=== PATIENT | female | born 1940 | race Native Hawaiian/Other Pacific Islander ===

== ENCOUNTER 2016-12-12 13:27 | Outpatient (CLI) | payer OTHER ==
[~2016-12-12 13:27] MED LIST: APRODINE1 TAB PO; CENTRUM SILVER PO; CRESTOR20 MG PO; DULO30CA PO; GABA100C2 PO; GLIM4TAB PO; HYDR25TA60 PO; HYZAAR1 TA1 PO; MAGNESIUM200 MG PO; MECLIZINE12.5 MG PO; METF500T PO; OMEPRAZOLE40 MG PO; ZANTAC300 MG PO
[2016-12-12 14:30] LABS: PLATELET COUNT 353 K/uL (152-353)
== END 2016-12-12 19:35 | disposition home or self-care (01) ==
LOC: LABW 13:27
PROVIDERS: Physician Assistant Surgical
DX: T81.31XA Disruption of external operation (surgical) wound, not elsewhere classified, initial encounter (principal)
CPT/HCPCS: 36415; 85027; 85651; 86140

== ENCOUNTER 2017-01-07 18:29 | Outpatient (CLI) | payer OTHER | END 2017-01-07 19:32 | disposition home or self-care (01) | LOC: LAB 18:29 | DX: A07.2 Cryptosporidiosis (principal) | CPT/HCPCS: 87015; 87045; 87205; 87328; 87329; 87899 ==

== ENCOUNTER 2017-01-14 10:27 | Outpatient (CLI) | payer OTHER | END 2017-01-14 13:00 | disposition home or self-care (01) | LOC: INF 10:27 | DX: E86.0 Dehydration (principal) | CPT/HCPCS: 96360; 96361 ==

== ENCOUNTER 2017-12-16 14:51 | Outpatient (CLI) | payer OTHER ==
[~2017-12-16 14:51] MED LIST changes: +BAYER ASPIRIN E81 MG OR; +SIMV20TA2 PO
== END 2017-12-16 19:53 | disposition home or self-care (01) ==
LOC: RAD 14:51
DX: Z17.0 Estrogen receptor positive status [ER+] (principal); R42 Dizziness and giddiness; Z78.0 Asymptomatic menopausal state

== ENCOUNTER 2018-07-29 14:42 | Outpatient (CLI) | payer OTHER | END 2018-07-29 19:22 | disposition home or self-care (01) | LOC: RAD 14:42 | DX: J18.0 Bronchopneumonia, unspecified organism (principal) ==

== ENCOUNTER 2018-12-24 15:39 | Emergency (ER) | payer OTHER ==
[~2018-12-24] VITALS: Ht 165.1 cm; Wt 68.9 kg
[2018-12-24 15:55] VITALS: TEMP 98.2
[2018-12-24 17:17] VITALS: BP 148/74
== END 2018-12-24 17:14 | disposition home or self-care (01) ==
LOC: ED 15:39
DX: S63.682A Other sprain of left thumb, initial encounter (principal); V47.3XXA Unspecified car occupant injured in collision with fixed or stationary object in nontraffic accident, initial encounter; Y92.89 Other specified places as the place of occurrence of the external cause
CPT/HCPCS: 90471; 90715; 99283

== ENCOUNTER 2020-01-13 11:58 | Outpatient (CLI) | payer OTHER | END 2020-01-13 19:51 | disposition home or self-care (01) | LOC: RAD 11:58 | DX: R13.10 Dysphagia, unspecified (principal) ==

== ENCOUNTER 2021-02-06 09:31 | Outpatient (CLI) | payer OTHER | END 2021-02-06 21:45 | disposition home or self-care (01) | LOC: CT 09:31 | PROVIDERS: ATTEND Nurse Practitioner Family | DX: J32.9 Chronic sinusitis, unspecified (principal) ==

== ENCOUNTER 2021-03-07 12:43 | Outpatient (CLI) | payer OTHER ==
[2021-03-07 13:13] LABS: POTASSIUM 4.4 mmol/L (3.6-5.2); SODIUM 141 mmol/L (136-145)
[2021-03-07 13:44] LABS: PLATELET COUNT 371 K/uL (152-353)
== END 2021-03-07 20:16 | disposition home or self-care (01) ==
LOC: LABW 12:43
PROVIDERS: ATTEND Family Medicine
DX: R10.12 Left upper quadrant pain (principal)
CPT/HCPCS: 36415; 80053; 82150; 82550; 82553; 83690; 84484; 85027; Q9963

== ENCOUNTER 2021-04-03 09:05 | Outpatient (CLI) | payer OTHER | END 2021-04-03 20:04 | disposition home or self-care (01) | LOC: US 09:05 | PROVIDERS: ATTEND Nurse Practitioner Family | DX: N28.1 Cyst of kidney, acquired (principal) ==

== ENCOUNTER 2021-06-07 11:15 | Day surgery (SDC) | payer OTHER ==
[2021-06-06 10:00] LABS: PLATELET COUNT 330 K/uL (152-353)
[2021-06-06 10:29] LABS: POTASSIUM 3.8 mmol/L (3.6-5.2)
== END 2021-06-07 14:17 | disposition home or self-care (01) ==
LOC: OR 11:15
PROVIDERS: ATTEND Internal Medicine Gastroenterology
PROC: 0DJD8ZZ Inspection of Lower Intestinal Tract, Via Natural or Artificial Opening Endoscopic (ICD-10-PCS; principal; 2021-06-07)
DX: K57.30 Diverticulosis of large intestine without perforation or abscess without bleeding (principal); K64.8 Other hemorrhoids; R10.32 Left lower quadrant pain; K59.09 Other constipation; Z86.010 Personal history of colon polyps; Z85.3 Personal history of malignant neoplasm of breast; Z20.822 Contact with and (suspected) exposure to COVID-19
CPT/HCPCS: 80053; 85027; 87635; U0003

== ENCOUNTER 2021-10-27 07:31 | Outpatient (CLI) | payer OTHER | END 2021-10-27 20:29 | disposition home or self-care (01) | LOC: RAD 07:31 | PROVIDERS: ATTEND Family Medicine | DX: R05.3 Chronic cough (principal) ==

== ENCOUNTER 2021-11-16 12:39 | Outpatient (CLI) | payer OTHER ==
[~2021-11-16] VITALS: Ht 165.1 cm; Wt 65.8 kg
--- NOTE | 2021-11-16 16:18 | NUR ---
1ST LITER OF COMPLETED 2ND LITER STARTED AT THIS TIME.
== END 2021-11-16 18:58 | disposition home or self-care (01) ==
LOC: INF 12:39
PROVIDERS: ATTEND Family Medicine
DX: E86.0 Dehydration (principal)
CPT/HCPCS: 96361; 96365

== ENCOUNTER 2022-06-29 13:21 | Observation (INO) | payer OTHER ==
[~2022-06-29] VITALS: Ht 165.1 cm; Wt 67.6 kg
[2022-06-29 14:36] LABS: PLATELET COUNT 299 K/uL (152-353)
[2022-06-29 14:56] LABS: POTASSIUM 3.5 mmol/L (3.6-5.2)
[2022-06-29 15:43] VITALS: BP 176/87; TEMP 98.2; Ht 165.1 cm; Wt 67.6 kg
[2022-06-29 16:00] VITALS: BP 161/80; TEMP 98.1
[2022-06-29] MEDS ORDERED: COZAAR100 MG PO (16:30)
[2022-06-29] MEDS ORDERED: METF500T PO (16:30)
[2022-06-29] MEDS ORDERED: GLIM2TAB PO (16:30)
[2022-06-29] MEDS ORDERED: ANAS1TAB PO (16:30)
[2022-06-29] MEDS ORDERED: PARO20TA3 PO (16:31)
[2022-06-29] MEDS ORDERED: SODI650T PO (16:31)
[2022-06-29] MEDS ORDERED: XYZAL ALLERGY 245 MG PO (16:40)
[2022-06-29] MEDS ORDERED: PAIN RELIEF EX500 MG PO (16:42)
== END 2022-06-29 21:09 | disposition home or self-care (01) ==
LOC: MED/SURG 13:21
PROVIDERS: ADMIT Internal Medicine; ATTEND Internal Medicine
DX: R07.89 Other chest pain (principal); Z85.3 Personal history of malignant neoplasm of breast; E78.49 Other hyperlipidemia; K21.9 Gastro-esophageal reflux disease without esophagitis; I12.9 Hypertensive chronic kidney disease with stage 1 through stage 4 chronic kidney disease, or unspecified chronic kidney disease; E11.22 Type 2 diabetes mellitus with diabetic chronic kidney disease; E11.65 Type 2 diabetes mellitus with hyperglycemia; N18.32 Chronic kidney disease, stage 3b; E11.42 Type 2 diabetes mellitus with diabetic polyneuropathy
CPT/HCPCS: 80053; 82550; 82948; 84484; 85027; 87635; 93005; 96372; 99220; G0378; G0379; J1650; U0003

== ENCOUNTER 2022-09-30 08:36 | Emergency (ER) | payer OTHER ==
[~2022-09-30] VITALS: Ht 165.1 cm; Wt 68.0 kg
[2022-09-30 08:36] VITALS: TEMP 97.7
[~2022-09-30 08:36] MED LIST changes: +ANAS1TAB PO; +COZAAR100 MG PO; +GLIM2TAB PO; +PAIN RELIEF EX500 MG PO; +PARO20TA3 PO; +SODI650T PO; +XYZAL ALLERGY 245 MG PO
[2022-09-30 09:01] LABS: PLATELET COUNT 337 K/uL (152-353)
[2022-09-30 09:07] LABS: POTASSIUM 3.4 mmol/L (3.6-5.2)
[2022-09-30 09:46] LABS: PARTIAL THROMBOPLASTIN TIME 24.3 SECONDS (24.5-33.6)
[2022-09-30 12:11] VITALS: BP 201/88
== END 2022-09-30 12:11 | disposition short-term general hospital (02) ==
LOC: ED 08:40
PROVIDERS: Family Medicine
DX: I63.9 Cerebral infarction, unspecified (principal); G81.94 Hemiplegia, unspecified affecting left nondominant side; I10 Essential (primary) hypertension; E11.65 Type 2 diabetes mellitus with hyperglycemia; Z79.84 Long term (current) use of oral hypoglycemic drugs; Z51.81 Encounter for therapeutic drug level monitoring
CPT/HCPCS: 80053; 80307; 81002; 82550; 84443; 84484; 85027; 85610; 85730; 93005; 96374; 99285; J1885

== ENCOUNTER 2022-12-31 15:40 | Observation (INO) | payer OTHER ==
[~2022-12-31] VITALS: Ht 165.1 cm; Wt 65.1 kg
[2022-12-31 15:40] VITALS: BP 184/85; TEMP 97.3
[2022-12-31 17:21] LABS: PLATELET COUNT 371 K/uL (152-353)
[2022-12-31 17:23] VITALS: BP 177/92
[2022-12-31 17:32] LABS: POTASSIUM 3.7 mmol/L (3.6-5.2)
[2022-12-31 17:55] VITALS: BP 151/80
[2022-12-31 18:25] VITALS: BP 157/99
[2022-12-31] MEDS ORDERED: CLOPIDOGREL75 MG PO (21:11)
[2022-12-31] MEDS ORDERED: GABA300C2 PO (21:12)
[2022-12-31] MEDS ORDERED: CLONIDINE HYDR0.1 M2 PO (21:12)
[2022-12-31] MEDS ORDERED: ASPIRIN LOW DOS81 MG PO (21:13)
[2022-12-31] MEDS ORDERED: LIPITOR80 MG PO (21:13)
[2022-12-31] MEDS ORDERED: MONTELUKAST SOD10 MG PO (21:14)
[2022-12-31] MEDS ORDERED: CARV3.12 PO (21:14)
[2022-12-31 22:50] VITALS: BP 188/96; TEMP 98.9; Ht 165.1 cm; Wt 65.1 kg
[2022-12-31 23:35] VITALS: BP 145/73; TEMP 98.5
[2023-01-01 03:32] VITALS: BP 162/78; TEMP 98.3
[2023-01-01 05:27] LABS: PLATELET COUNT 284 K/uL (152-353)
[2023-01-01 05:36] LABS: POTASSIUM 3.6 mmol/L (3.6-5.2)
[2023-01-01 08:00] VITALS: BP 174/83; TEMP 98.5
[2023-01-01 12:00] VITALS: BP 187/97; TEMP 97.6
[2023-01-01 16:00] VITALS: BP 174/79; TEMP 98.3
== END 2023-01-01 18:49 | disposition home or self-care (01) ==
LOC: ED 15:40 → MED/SURG 17:56
PROVIDERS: Family Medicine; ADMIT Internal Medicine Endocrinology, Diabetes & Metabolism; ATTEND Internal Medicine Endocrinology, Diabetes & Metabolism
DX: I63.89 Other cerebral infarction (principal); H53.8 Other visual disturbances; Z86.73 Personal history of transient ischemic attack (TIA), and cerebral infarction without residual deficits; E11.9 Type 2 diabetes mellitus without complications; K21.9 Gastro-esophageal reflux disease without esophagitis; E78.49 Other hyperlipidemia; G62.9 Polyneuropathy, unspecified; N18.32 Chronic kidney disease, stage 3b; D63.1 Anemia in chronic kidney disease; Z79.01 Long term (current) use of anticoagulants; I12.9 Hypertensive chronic kidney disease with stage 1 through stage 4 chronic kidney disease, or unspecified chronic kidney disease
CPT/HCPCS: 36415; 80048; 80053; 80061; 82948; 84484; 85027; 93005; 96372; 99221; 99284; G0378; J1650